=== PATIENT | male | born 1980 | race Caucasian/White ===

== ENCOUNTER 2019-10-01 20:41 | Emergency (ER) | payer MEDICAID ==
[~2019-10-01] VITALS: Ht 185.4 cm; Wt 99.8 kg
[2019-10-01] MEDS ORDERED: OMEPRAZOLE20 MG PO (21:04)
[2019-10-01] MEDS ORDERED: VALIUM10 MG PO (21:18)
== END 2019-10-01 21:28 | disposition home or self-care (01) ==
LOC: ED 20:41
DX: R56.9 Unspecified convulsions (principal); I10 Essential (primary) hypertension; F17.200 Nicotine dependence, unspecified, uncomplicated; Z88.5 Allergy status to narcotic agent; Z88.0 Allergy status to penicillin; Z88.8 Allergy status to other drugs, medicaments and biological substances; Z79.899 Other long term (current) drug therapy
CPT/HCPCS: 99283